=== PATIENT | male | born 1985 | race Caucasian/White ===

== ENCOUNTER 2025-01-13 11:28 | Emergency (ER) | payer SELFPAY ==
[~2025-01-13] VITALS: Ht 177.8 cm; Wt 72.6 kg
[2025-01-13 12:32] LABS: APPEARANCE,URINE TURBID (CLEAR); BILIRUBIN,URINE NEGATIVE (NEGATIVE); BLOOD, URINE 3+ Ery/uL (NEGATIVE); COLOR,URINE YELLOW (YELLOW); KETONES,URINE NEGATIVE (NEGATIVE); LEUKOCYTE ESTERASE ,URINE 2+ (NEGATIVE); NITRITE, URINE NEGATIVE (NEGATIVE); PH,URINE 7.5 (5.0-8.0); PROTEIN,URINE 1+ mg/dl (NEGATIVE); UGLUCOSE NEGATIVE (NEGATIVE); UROBILINOGEN,URINE 0.2 EU/dL (0.2)
[2025-01-13 12:50] VITALS: BP 130/77; TEMP 98.3; O2SAT 99
[2025-01-13 12:53] LABS: RBC,URINE 21-50 /HPF (0-2); WBC,URINE 51-80 /HPF (0-3)
[2025-01-13 12:54] LABS: ADD URINE CULTURE YES; BACTERIA,URINE Few /HPF (None Seen); SQUAMOUS EPITHELIAL CELL,UR None Seen /HPF (None Seen)
[2025-01-15 13:11] LABS: CHLAMYDIA TRACHOMATIS NAA Negative (Negative); NEISSERIA GONORRHOEAE NAA Negative (Negative)
== END 2025-01-13 12:51 | disposition home or self-care (01) ==
LOC: ER 11:32
DX: N45.1 Epididymitis (principal)
CPT/HCPCS: 76870-TC; 81001; 87086-TC; 87491; 87591

== ENCOUNTER 2025-01-28 16:10 | Emergency (ER) | payer SELFPAY ==
[~2025-01-28] VITALS: Ht 177.8 cm; Wt 74.8 kg
[2025-01-28] MEDS ORDERED: LEVO500T90 PO (17:28)
[2025-01-28] MEDS ORDERED: CEFTRIAXONE 1 G VIAL ONE (17:30)
[2025-01-28] MEDS ORDERED: LIDOCAINE 1% INJ 50 ML MDV IJ ONE (17:32)
[2025-01-28] MEDS: CEFTRIAXONE 1 G VIAL IM ONE (17:40)
[2025-01-28 17:41] VITALS: BP 131/78; TEMP 98.5; O2SAT 99
[2025-01-28 17:54] LABS: APPEARANCE,URINE CLEAR (CLEAR); BILIRUBIN,URINE 1+ (NEGATIVE); BLOOD, URINE NEGATIVE Ery/uL (NEGATIVE); COLOR,URINE DARK YELLOW (YELLOW); KETONES,URINE TRACE mg/dL (NEGATIVE); LEUKOCYTE ESTERASE ,URINE NEGATIVE (NEGATIVE); NITRITE, URINE NEGATIVE (NEGATIVE); PROTEIN,URINE TRACE mg/dl (NEGATIVE); UGLUCOSE NEGATIVE (NEGATIVE); UROBILINOGEN,URINE 0.2 EU/dL (0.2)
[2025-01-28 19:12] LABS: ADD URINE CULTURE NO; BACTERIA,URINE None seen /HPF (None Seen); RBC,URINE 0-2 /HPF (0-2); URINE AMORPHOUS URATE Few /HPF (None Seen)
== END 2025-01-28 17:41 | disposition home or self-care (01) ==
LOC: ER 16:15
DX: N45.3 Epididymo-orchitis (principal); R50.9 Fever, unspecified; N50.811 Right testicular pain
CPT/HCPCS: 99285; 96372; 76870; 81001; J3490; J0696